=== PATIENT | male | born 1955 | race Two or more races ===

== ENCOUNTER 2025-02-23 01:47 | Emergency (ER) | payer OTHER ==
[~2025-02-23] VITALS: Ht 182.9 cm; Wt 99.8 kg
[~2025-02-23 01:47] MED LIST: CELEBREX100 MG PO; HUMALOG100 U/ML; ORPH100T PO
[2025-02-23] MEDS ORDERED: JANUMET 50-1,01 EACH PO (01:55)
[2025-02-23] MEDS ORDERED: COZAAR50 MG PO (01:55)
[2025-02-23] MEDS ORDERED: GLIMEPIRIDE1 MG PO (01:55)
[2025-02-23] MEDS ORDERED: MORPHINE SULFATE 4 MG/ML CARTRIDGE IV STA (02:02)
[2025-02-23] MEDS ORDERED: DEXAMETHASONE SODIUM PHOSPHATE 4 MG/ML VIAL IM STA (02:06)
[2025-02-23 03:10] LABS: BASO % 0.5 % (0.1-1.2); EOS # 0.23 (0.04-0.54); EOS % 2.6 % (0.7-7.0); LYMPH # 1.55 (1.18-3.74); LYMPH % 17.6 % (19.3-53.1); MEAN PLATELET VOLUME 10.60 fl (9.4-12.4); MONO # 1.13 (0.24-0.82); NEUT # 5.82 (1.56-6.13); NEUT % 66.2 % (34.0-71.1); RED CELL DISTRIBUTION WIDTH 13.3 % (11.6-14.4)
[2025-02-23 03:21] LABS: MONO % 12.8 % (4.7-12.5)
[2025-02-23 03:28] LABS: BUN CREA RATIO 24.0 (7.0-25.0); CREATININE SERUM 1.07 mg/dL (0.70-1.30); GFR 68.72; GLUCOSE FASTING 111.0 mg/dL (65-100); OSMOLALITY SERUM 289.0 MOSM/KG (275-295)
[2025-02-23 05:07] LABS: URINE APPEARANCE Clear; URINE BILIRRUBIN Negative (NEGATIVE); URINE BLOOD Negative; URINE COLOR Yellow; URINE KETONE Negative (NEGATIVE); URINE LEUKOCYTE Negative; URINE NITRATE Negative; URINE PROTEIN Negative (NEGATIVE); URINE UROBILINOGEN 0.2 E.U./dl
[2025-02-23 05:11] LABS: URINE BACTERIA 4.7 uL (0.0-1933); URINE WBC 2.4 uL (0.0-23.2)
[2025-02-23 05:22] LABS: URINE CAST 0.29 uL (0.0-1.40); URINE EPITHELIAL CELLS 1.3 uL (0.0-38.8); URINE GLUCOSE >=1000 MG/DL (NEGATIVE); URINE RBC 1.4 uL (0.0-20.8)
== END 2025-02-23 04:36 | disposition home or self-care (01) ==
LOC: ER 01:47
PROVIDERS: General Practice
DX: M79.641 Pain in right hand (principal); S29.8XXA Other specified injuries of thorax, initial encounter; W18.39XA Other fall on same level, initial encounter; Y93.89 Activity, other specified; Y92.89 Other specified places as the place of occurrence of the external cause; M79.642 Pain in left hand; M54.59 Other low back pain
CPT/HCPCS: 36415; 71110; 72100; 73130; 73502; 96365; 96372; 99283; J1100; J2270